=== PATIENT | male | born 1955 | race Caucasian/White ===

== ENCOUNTER → 2018-04-10 | Day surgery (SDC) | payer OTHER ==
[~2018-04-10] MED LIST: HYDR12.575 PO; IV RINGERS,LACTATED 1000ML 1,000 ML IV SCH; LEVO75TA5 PO; LIDOCAINE 2% 100 MG/5 ML SYRINGE. ONE; LISI-334 PO; PROPOFOL 40 ML IV ONE; SIMV20TA3 PO
[2018-04-10 11:17] VITALS: BP 130/14
--- NOTE | 2018-04-14 10:07 | PATHOLOGY ---
[facility] Accession Number: [id number] . 01 Material submitted: . PART A: GASTRIC ANTRUM PART B: SMALL BOWEL PART C: DISTAL ESOPHAGUS BIOPSY PART D: RECTAL POLYP . 01 Clinical history: . GERD . 02 Diagnosis: A. Gastric biopsy, gastric antrum: - Congestion and focal slight chronic inflammation. . B. Small bowel biopsy: - No diagnostic abnormalities. . C. 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 . D. Colorectal biopsy, rectal polyp: - Hyperplastic polyp, with mild chronic inflammation. (JPM:shanta/emani; 04/11/2018) QTP/04/11/2018 . 02 Comment: Sections of the gastric biopsy reveal gastric antral/body transition mucosa showing congestion and only focal slight chronic inflammation. A properly controlled immunoperoxidase stain for Helicobacter is negative for Helicobacter organisms. . Sections of the small bowel biopsy reveal segments of duodenal and small intestine mucosa. Where best oriented, the mucosal villi appear normal. There are no sprue-like changes or significant inflammatory changes. . 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 There is no dysplasia or evidence of malignancy. . Sections of the rectal biopsy reveal a hyperplastic polyp showing mild chronic inflammation. There are no adenomatous changes or evidence of malignancy. (JPM:shanta 04/11/2018) . Special stain performed: Immunoperoxidase for Helicobacter on A1. . 02 Electronically signed: . Francesco Braxton MD, Pathologist NPI- [id number] . 01 Gross description: . A. Received in formalin labeled "Matthew, Ghassan, gastric antrum BX," is a single segment of moreira soft tissue measuring 0.6 cm in maximum dimension. The specimen is entirely submitted in cassette A1. . B. Received in formalin labeled "Walta, Ghassan, small bowel BX," are 3 segments of moreira soft tissue measuring 1.1 x 0.9 x 0.2 cm in aggregate dimensions and ranging from 0.3 to 0.5 cm in maximum dimension. The specimen is submitted entirely in cassette B1. . C. Received in formalin labeled "Walta, Ghassan, distal esophagus BX," are 3 segments of moreira soft tissue measuring 0.9 x 0.6 x 0.2 cm in aggregate dimensions and ranging from 0.3 to 0.5 cm in maximum dimension. The specimen is submitted entirely in cassette C1. . D. Received in formalin labeled "[place], Ghassan, rectal polyp," is a single segment of moreira soft tissue measuring 0.5 cm in maximum dimension. The specimen is entirely submitted in cassette D1. (TSD; 04/10/2018) TOB/TOB . 02 Pathologist provided ICD-10: K29.50, K31.89, K20.9, K22.70, K62.1, K62.89 . 02 CPT . 619205, 777086, 470532, 342328, [id number] Specimen Comment: A courtesy copy of this report has been sent to Specimen Comment: [phone], . Specimen Comment: Report sent to / DR STUART Specimen Comment: A duplicate report has been generated due to demographic updates. Performed at: 01 [facility] [address], [place] [id number] MD Ab Delcid MD Phone: [phone] Performed at: 02 [facility] [address] [place] [id number] MD Francesco Braxton MD Phone: [phone]
--- NOTE | 2018-05-22 12:48 | HP ---
ADMIT DATE: 04/10/2018 ADDENDUM: ASSESSMENT AND PLAN: Records from [facility] were obtained and the patient's last colonoscopy was on 01/13/2008. He had a combined tubular adenoma and hyperplastic polyp at 30 cm, a hyperplastic polyp at 20 cm and a hyperplastic rectal polyp. The colonoscopy was performed by Dr. Jhonny Magana at [facility] on 01/13/2008. AROLDO FULLER MD DR: GEN/nts JOB#: [id number] / [id number]
== END | disposition home or self-care (01) ==
LOC: SURG 08:44
PROVIDERS: ATTEND Internal Medicine Gastroenterology
DX: Z12.11 Encounter for screening for malignant neoplasm of colon (principal); K62.1 Rectal polyp; K57.30 Diverticulosis of large intestine without perforation or abscess without bleeding; K64.0 First degree hemorrhoids; K21.0 Gastro-esophageal reflux disease with esophagitis; K31.89 Other diseases of stomach and duodenum; K29.50 Unspecified chronic gastritis without bleeding; K62.89 Other specified diseases of anus and rectum; Z86.010 Personal history of colon polyps; I10 Essential (primary) hypertension; E78.00 Pure hypercholesterolemia, unspecified; E03.9 Hypothyroidism, unspecified; Z79.899 Other long term (current) drug therapy; Z90.49 Acquired absence of other specified parts of digestive tract; Z98.890 Other specified postprocedural states; Z83.3 Family history of diabetes mellitus; Z72.89 Other problems related to lifestyle; Z72.0 Tobacco use
CPT/HCPCS: 43239; 45385; 88305; 88342; J2704; 45380